=== PATIENT | female | born 1960 | race Caucasian/White ===

== ENCOUNTER 2022-01-10 17:03 | Observation (INO) | payer OTHER ==
[~2022-01-10] VITALS: Ht 175.3 cm; Wt 54.4 kg
[2022-01-10] MEDS ORDERED: CLONIDINE HCL 0.1 MG TAB PO ONE (17:30)
[2022-01-10 17:49] LABS: BASOPHILS # (AUTO) 0.1 (0.0-0.1); BASOPHILS % 1.5 % (0.0-1.0); EOSINOPHILS % 0.6 % (0.0-6.0); HEMATOCRIT 37.8 % (34.2-44.1); HEMOGLOBIN 13.2 g/dL (12.0-16.0); LYMPHOCYTES # (AUTO) 1.4 (1.0-3.2); LYMPHOCYTES % 25.7 % (18.0-39.1); MEAN CORPUSCULAR HEMOGLOBIN 34.8 pg (28-32); MEAN CORPUSCULAR HGB CONC 34.9 g/dL (31-35); MEAN CORPUSCULAR VOLUME 99.7 fL (81-99); MONOCYTES # (AUTO) 0.5 (0.2-0.8); NEUTROPHILS # (AUTO) 3.4 (2.1-6.9); PLATELET COUNT 312 x10e3/uL (140-360); RED BLOOD COUNT 3.79 x10e6/uL (3.6-5.1); RED CELL DISTRIBUTION WIDTH 11.3 % (11.7-14.4)
[2022-01-10 18:02] LABS: ALANINE AMINOTRANSFERASE 19 IU/L (0-55); ALBUMIN 4.2 g/dL (3.5-5.0); ALBUMIN/GLOBULIN RATIO 1.1 (0.8-2.0); ALKALINE PHOSPHATASE 92 IU/L (40-150); ANION GAP 18.2 mmol/L (8-16); BLOOD UREA NITROGEN 7 mg/dL (7-26); BUN/CREATININE RATIO 10 (6-25); CALCIUM 8.8 mg/dL (8.4-10.2); CARBON DIOXIDE 23 mmol/L (22-29); CHLORIDE 89 mmol/L (98-107); CREATINE KINASE 121 IU/L (29-168); CREATININE, SERUM 0.71 mg/dL (0.57-1.11); GLUCOSE 84 mg/dL (74-118); POTASSIUM 4.2 mmol/L (3.5-5.1); SODIUM 126 mmol/L (136-145)
[2022-01-10] MEDS ORDERED: HYDRALAZINE HCL 20 MG/ML VIAL IV PRN (18:30)
[2022-01-10] MEDS ORDERED: ONDANSETRON HCL INJ 2MG/ML 2ML 2 MG/ML VIAL IV PRN (18:30)
[2022-01-10] MEDS: SODIUM CHLORIDE 0.9% 1000ML 1,000 ML IV SCH (18:30)
[2022-01-10 23:00] VITALS: BP 158/61
[2022-01-10] MEDS ORDERED: ACETAMINOPHEN 325 MG TAB PO PRN (23:45)
[2022-01-11] VITALS (7 sets, daily range): BP systolic 132–162; BP diastolic 61–98
[2022-01-11] MEDS ORDERED: ONDANSETRON HCL INJ 2MG/ML 2ML 2 MG/ML VIAL IV PRN (00:15)
[2022-01-11] MEDS ORDERED: POLYETHYLENE GLYCOL 3350 17 GM PACK PO PRN (00:15)
[2022-01-11] MEDS ORDERED: ACETAMINOPHEN 325 MG TAB PO PRN (00:15)
[2022-01-11] MEDS ORDERED: TEMAZEPAM 7.5 MG CAP PO PRN (00:15)
[2022-01-11] MEDS ORDERED: HYDRALAZINE HCL 20 MG/ML VIAL IV PRN (00:15)
[2022-01-11] MEDS ORDERED: COREG12.5 MG PO (00:27)
[2022-01-11] MEDS ORDERED: LYLLANA (00:28)
[2022-01-11] MEDS: SODIUM CHLORIDE 0.9% 1000ML 1,000 ML IV SCH ×2 (02:30→09:22)
[2022-01-11 05:02] LABS: BASOPHILS # (AUTO) 0.1 (0.0-0.1); BASOPHILS % 1.3 % (0.0-1.0); EOSINOPHILS # (AUTO) 0.1 (0.0-0.4); EOSINOPHILS % 1.1 % (0.0-6.0); HEMATOCRIT 36.6 % (34.2-44.1); HEMOGLOBIN 12.7 g/dL (12.0-16.0); LYMPHOCYTES # (AUTO) 1.6 (1.0-3.2); LYMPHOCYTES % 32.6 % (18.0-39.1); MEAN CORPUSCULAR HEMOGLOBIN 34.9 pg (28-32); MEAN CORPUSCULAR HGB CONC 34.7 g/dL (31-35); MEAN CORPUSCULAR VOLUME 100.5 fL (81-99); MONOCYTES # (AUTO) 0.6 (0.2-0.8); MONOCYTES % 11.6 % (4.4-11.3); NEUTROPHILS # (AUTO) 2.5 (2.1-6.9); PLATELET COUNT 262 x10e3/uL (140-360); RED BLOOD COUNT 3.64 x10e6/uL (3.6-5.1); RED CELL DISTRIBUTION WIDTH 11.5 % (11.7-14.4)
[2022-01-11 05:48] LABS: ALBUMIN 3.4 g/dL (3.5-5.0); ALBUMIN/GLOBULIN RATIO 1.1 (0.8-2.0); CALCIUM 8.4 mg/dL (8.4-10.2); CREATININE, SERUM 0.7 mg/dL (0.57-1.11)
[2022-01-11 06:20] LABS: CREATINE KINASE MB 2.5 ng/mL (0-5.0)
[2022-01-11] MEDS ORDERED: FAMOTIDINE 20 MG TAB PO SCH (07:30)
[2022-01-11] MEDS: DOCUSATE SODIUM 100 MG CAP PO SCH ×2 (09:00→09:23)
[2022-01-11] MEDS ORDERED: TEMAZEPAM 15 MG CAP PO PRN (09:00)
[2022-01-11] MEDS ORDERED: HYDRALAZINE HCL 25 MG TAB PO PRN (13:00)
[2022-01-11] MEDS ORDERED: SODIUM CHLORIDE1 GM PO (13:03)
[2022-01-11] MEDS ORDERED: HYDRALAZINE HCL25 MG PO (13:03)
[2022-01-11] MEDS ORDERED: ONDANSETRON HCL 4 MG ORAL DISINTEGRATING TAB PO PRN (14:00)
[2022-01-11] MEDS ORDERED: SODIUM CHLORIDE 1 GM TAB PO SCH (14:00)
[2022-01-11] MEDS ORDERED: CARVEDILOL 12.5 MG TAB PO SCH (17:00)
== END 2022-01-11 15:16 | disposition home or self-care (01) ==
LOC: ER 17:14 → ERHOLD 18:28 → MED/SURG 23:22
PROVIDERS: ADMIT Internal Medicine; ATTEND Internal Medicine
DX: I16.0 Hypertensive urgency (principal); F17.200 Nicotine dependence, unspecified, uncomplicated; J44.1 Chronic obstructive pulmonary disease with (acute) exacerbation; E87.1 Hypo-osmolality and hyponatremia; Z20.822 Contact with and (suspected) exposure to COVID-19; Z88.0 Allergy status to penicillin
CPT/HCPCS: 0223U; 36415 ×2; 80053 ×2; 82550 ×2; 82553 ×2; 84484 ×2; 85025 ×2; 93005; 99284; G0378 ×2; J0360; J7030 ×2

== ENCOUNTER 2022-10-14 01:48 | Observation (INO) | payer OTHER ==
[~2022-10-14] VITALS: Ht 175.3 cm; Wt 57.2 kg
[~2022-10-14 01:48] MED LIST: COREG12.5 MG PO; HYDRALAZINE HCL25 MG PO; LYLLANA; SODIUM CHLORIDE1 GM PO
[2022-10-14] MEDS ORDERED: LORAZEPAM INJ 2 MG/ML VIAL IV ONE (02:00)
[2022-10-14] MEDS ORDERED: CLONIDINE HCL 0.1 MG TAB PO ONE (02:00)
[2022-10-14 02:12] LABS: BASOPHILS # (AUTO) 0.1 (0.0-0.1); BASOPHILS % 1.1 % (0.0-1.0); EOSINOPHILS # (AUTO) 0.1 (0.0-0.4); EOSINOPHILS % 0.9 % (0.0-6.0); HEMATOCRIT 36.8 % (34.2-44.1); HEMOGLOBIN 13.1 g/dL (12.0-16.0); LYMPHOCYTES # (AUTO) 1.6 (1.0-3.2); LYMPHOCYTES % 28.4 % (18.0-39.1); MEAN CORPUSCULAR HEMOGLOBIN 34.6 pg (28-32); MEAN CORPUSCULAR HGB CONC 35.6 g/dL (31-35); MEAN CORPUSCULAR VOLUME 97.1 fL (81-99); MONOCYTES # (AUTO) 0.5 (0.2-0.8); MONOCYTES % 8.7 % (4.4-11.3); NEUTROPHILS # (AUTO) 3.3 (2.1-6.9); NEUTROPHILS % 60.5 % (38.7-80.0); PLATELET COUNT 279 x10e3/uL (140-360); RED BLOOD COUNT 3.79 x10e6/uL (3.6-5.1)
[2022-10-14 02:32] LABS: ALBUMIN 4.4 g/dL (3.5-5.0); ALBUMIN/GLOBULIN RATIO 1.1 (0.8-2.0); ANION GAP 19.2 mmol/L (8-16); CALCIUM 9.6 mg/dL (8.4-10.2); CREATININE, SERUM 0.7 mg/dL (0.57-1.11); POTASSIUM 4.2 mmol/L (3.5-5.1)
[2022-10-14] MEDS ORDERED: MULTIVITAMINS- 12 INJECTION 10 ML, FOLIC ACID MDV 1 MG, THIAMINE HCL INJ 100 MG in SODI... IV ONE (03:00)
[2022-10-14 04:20] LABS: CLARITY,URINE CLEAR (CLEAR); COLOR,URINE YELLOW (YELLOW); KETONES,URINE NEGATIVE (NEGATIVE); LEUKOCYTE ESTERASE ,URINE NEGATIVE (NEGATIVE); NITRITE,URINE NEGATIVE (NEGATIVE); PROTEIN,URINE DIPSTICK NEGATIVE (NEGATIVE); URINE UROBILINOGEN 0.2 mg/dL (0.2 - 1)
[2022-10-14 04:25] LABS: BACTERIA,URINE RARE /HPF; EPITHELIAL CELLS,URINE FEW /LPF; RBC,URINE 0-5 /HPF (0-5); WBC,URINE (MAN) 0-5 /HPF (0-5)
[2022-10-14] MEDS ORDERED: HYDRALAZINE HCL 20 MG/ML VIAL IV PRN (04:45)
[2022-10-14] MEDS ORDERED: LORAZEPAM INJ 2 MG/ML VIAL IV PRN (04:45)
[2022-10-14] MEDS ORDERED: ONDANSETRON HCL INJ 2MG/ML 2ML 2 MG/ML VIAL IV PRN (04:45)
[2022-10-14] MEDS: ACETAMINOPHEN 325 MG TAB PO PRN ×2 (14:07→18:50)
[2022-10-14 14:15] VITALS: BP 177/84; PULSE 53; RESP 18; TEMP 97.8; O2SAT 98
[2022-10-14 14:16] VITALS: BP 177/84; PULSE 53; RESP 18; TEMP 97.8; O2SAT 98
[2022-10-14 14:30] VITALS: BP 177/84; RESP 18; TEMP 97.8; O2SAT 98
[2022-10-14] MEDS ORDERED: COREG6.25 MG PO ×2 (14:34→14:37)
[2022-10-14] MEDS ORDERED: HYDRALAZINE HCL25 MG PO (14:41)
[2022-10-14] MEDS ORDERED: PROAIR INHALER INH (14:47)
[2022-10-14] MEDS ORDERED: ALBUTEROL NEB INH (14:47)
[2022-10-14] MEDS ORDERED: TRELEGY INHALER INH (14:47)
[2022-10-14] MEDS ORDERED: PRAVASTATIN SOD40 MG PO (14:47)
[2022-10-14 15:24] LABS: BASOPHILS # (AUTO) 0.1 (0.0-0.1); BASOPHILS % 1.3 % (0.0-1.0); EOSINOPHILS % 0.4 % (0.0-6.0); HEMATOCRIT 33.5 % (34.2-44.1); HEMOGLOBIN 11.9 g/dL (12.0-16.0); LYMPHOCYTES # (AUTO) 0.9 (1.0-3.2); LYMPHOCYTES % 20.7 % (18.0-39.1); MEAN CORPUSCULAR HEMOGLOBIN 34.7 pg (28-32); MEAN CORPUSCULAR HGB CONC 35.5 g/dL (31-35); MEAN CORPUSCULAR VOLUME 97.7 fL (81-99); MONOCYTES # (AUTO) 0.6 (0.2-0.8); MONOCYTES % 13.6 % (4.4-11.3); NEUTROPHILS # (AUTO) 2.9 (2.1-6.9); NEUTROPHILS % 63.8 % (38.7-80.0); PLATELET COUNT 233 x10e3/uL (140-360); RED BLOOD COUNT 3.43 x10e6/uL (3.6-5.1); RED CELL DISTRIBUTION WIDTH 11.3 % (11.7-14.4)
[2022-10-14 15:44] LABS: ALBUMIN 3.6 g/dL (3.5-5.0); ALBUMIN/GLOBULIN RATIO 1.2 (0.8-2.0); ANION GAP 16.3 mmol/L (8-16); CALCIUM 8.6 mg/dL (8.4-10.2); CREATININE, SERUM 0.73 mg/dL (0.57-1.11); POTASSIUM 4.3 mmol/L (3.5-5.1)
[2022-10-14 15:59] VITALS: BP 161/69; PULSE 59; RESP 17; TEMP 98.1; O2SAT 100
[2022-10-14] MEDS: HYDRALAZINE HCL 25 MG TAB PO SCH (17:26)
[2022-10-14] MEDS: CARVEDILOL 12.5 MG TAB PO SCH (17:26)
[2022-10-14 20:00] VITALS: BP 159/70; PULSE 67; RESP 17; TEMP 98.2; O2SAT 100
[2022-10-14] MEDS ORDERED: SIMVASTATIN 20 MG TAB PO SCH (21:00)
[2022-10-14 21:26] VITALS: BP 159/70; PULSE 67; RESP 16; TEMP 98.2; O2SAT 96
[2022-10-15 01:28] VITALS: BP 157/71; PULSE 60; RESP 17; TEMP 98.2; O2SAT 98
[2022-10-15] MEDS: HYDRALAZINE HCL 25 MG TAB PO SCH (04:45)
[2022-10-15 05:47] VITALS: BP 140/90; PULSE 58; RESP 17; TEMP 98.1; O2SAT 100
[2022-10-15 08:14] VITALS: BP 140/63; PULSE 56; RESP 14; TEMP 97.9; O2SAT 99
[2022-10-15 08:15] LABS: ANION GAP 15.5 mmol/L (8-16); CALCIUM 8.6 mg/dL (8.4-10.2); CREATININE, SERUM 0.67 mg/dL (0.57-1.11); POTASSIUM 4.5 mmol/L (3.5-5.1)
[2022-10-15 08:25] VITALS: BP 140/63; PULSE 56; RESP 14; TEMP 97.9; O2SAT 99
[2022-10-15] MEDS: CARVEDILOL 12.5 MG TAB PO SCH (08:36)
[2022-10-15] MEDS: ACETAMINOPHEN 325 MG TAB PO PRN (08:36)
[2022-10-15 12:24] VITALS: BP 140/71; PULSE 52; RESP 15; TEMP 98.3; O2SAT 100
== END 2022-10-15 13:33 | disposition home or self-care (01) ==
LOC: ER 01:55 → ERHOLD 04:42 → MED/SURG3 13:29
PROVIDERS: ADMIT Internal Medicine; ATTEND Internal Medicine
DX: E87.1 Hypo-osmolality and hyponatremia (principal); I16.0 Hypertensive urgency; F10.10 Alcohol abuse, uncomplicated; Z72.0 Tobacco use; J44.9 Chronic obstructive pulmonary disease, unspecified
CPT/HCPCS: 36415 ×2; 70450; 80048; 80053; 80320; 81001; 84484; 85025; 93005; 99284; G0378 ×2; J0360; J2060; J3411; J7030; U0002